=== PATIENT | male | born 1955 | race Caucasian/White ===

== ENCOUNTER 2020-09-19 09:56 | Outpatient (CLI) | payer MEDICARE, OTHER, SELFPAY ==
--- NOTE | 2020-09-19 10:14 | XRR_ITS ---
PROCEDURE INFORMATION: Exam: XR Cervical Spine, 2 or 3 Views Exam date and time: 09/19/2020 10:30 AM Age: 65 years old Clinical indication: Radicular pain (radiculopathy); Location of radicular pain not specified; Prior surgery; Surgery date: 6+ months TECHNIQUE: Imaging protocol: XR of the cervical spine, 2 or 3 views. COMPARISON: CR Cervical Spine 5 views [id number] 06/30/2018 1:13 PM FINDINGS: Bones/joints: Patient has undergone anterior discectomy at the C4-C5, C5-C6 and C6-C7 levels. An anterior metal plate with vertebral body screws fuses the C6-C7 level. There is reversal of the normal cervical lordotic curvature. There is no other malalignment. Degenerative changes are present with narrowing of the C3 2-3 and C3-C4 disc spaces. No fracture or other acute abnormalities are present. Soft tissues: Unremarkable. XR/XR cervical spine 3V* [id number] IMPRESSION: 1. Satisfactory postsurgical appearance from C4 through C7. 2. Degenerative changes at C2-C3 and C3-C4.
== END 2020-09-19 09:57 | disposition home or self-care (01) ==
PROVIDERS: PCP Family Medicine; Visit Provider Neurological Surgery
DX: M54.12 Radiculopathy, cervical region (principal)
CPT/HCPCS: 72040

== ENCOUNTER 2020-12-18 11:28 | Outpatient (CLI) | payer MEDICARE, OTHER, SELFPAY ==
--- NOTE | 2020-12-18 11:33 | XR_ITS ---
WS: [id number] CERVICAL SPINE TECHNIQUE: 3 views of the cervical spine CLINICAL INFORMATION: RADICULOPATHY, CERVICAL REGION COMPARISON: September 19, 2020 FINDINGS: Straightening of the normal cervical lordosis. Anterior cervical fusion C6-7. Pedicle screw fixation C6-7. Interbody fusion C4-C5, C5-C6 and C6-C7. Posterior element bony fusion at C2-3. Normal preverte bral soft tissues. XR/XR cervical spine 3V* [id number] IMPRESSION: 1. Straightening of the normal cervical lordosis with slight reversal. 2. Anterior plate and screw fixation C6-7. 3. Interbody fusion C4-C5 C5-C6 and C6-C7.
--- NOTE | 2020-12-18 11:39 | XR_ITS ---
WS: [id number] PROCEDURE: XR chest 2V* [id number] CLINICAL INFORMATION: ACUTE BRONCHITIS DUE TO OTHER SPECIFIED ORGANISMS COMPARISON: None. FINDINGS: Heart: Normal cardiac silhouette. Lungs: Mild chronic emphysematous changes. Calcified granulomas left lower lobe. No acute pulmonary i nfiltrates. No focal consolidation or pleural fluid. Postoperative changes anterior cervical fusion p artially visualized. Bones: Normal visualized bony structures. XR/XR chest 2V* [id number] IMPRESSION: No acute chest findings. No acute pulmonary infiltrates.
== END 2020-12-18 11:29 | disposition home or self-care (01) ==
PROVIDERS: PCP Family Medicine; Referring Provider Family Medicine; Visit Provider Physician Assistant
DX: M54.12 Radiculopathy, cervical region (principal); J20.9 Acute bronchitis, unspecified; M43.22 Fusion of spine, cervical region
CPT/HCPCS: 71046; 72040

== ENCOUNTER 2021-06-07 10:51 | Outpatient (CLI) | payer MEDICARE, OTHER, SELFPAY ==
--- NOTE | 2021-06-07 11:45 | XR_ITS ---
WS: [id number] CERVICAL SPINE TECHNIQUE: 3 views of the cervical spine CLINICAL INFORMATION: RADICULOPATHY, CERVICAL SPINE COMPARISON: None. FINDINGS: Straightening of the normal cervical lordosis with slight reversal. Prior postoperative changes anter ior plate and screw fixation C6-7. Interbody bony fusion C4-C5 C5-C6 and C6-C7. Posterior element fus ion C2-3. Normal C1-2 articulation. XR/XR cervical spine 3V* [id number] IMPRESSION: 1. Straightening of the normal cervical lordosis with slight reversal. 2. Moderate spondylitic changes. 3. Anterior plate and screw fixation C6-7. 4. Interbody fusion C4-C5, C5-C6 and C6-C7 5. No significant changes since December 18, 2020
== END 2021-06-07 10:52 | disposition home or self-care (01) ==
PROVIDERS: PCP Family Medicine; Visit Provider Neurological Surgery
DX: M54.12 Radiculopathy, cervical region (principal); M43.22 Fusion of spine, cervical region
CPT/HCPCS: 72040

== ENCOUNTER 2021-11-02 21:48 | Emergency (ER) | payer MEDICARE, OTHER, SELFPAY ==
[2021-11-02 21:50] VITALS: BP 160/75; PULSE 73; RESP 18; TEMP 37.2; O2SAT 98; BMI 25.8
--- NOTE | 2021-11-02 21:55 | ECG_ITS ---
[facility] Test Date: 2021-11-02 Pat Name: Arun Ceballos Department: Room: Gender: Male Audit Lead: : 1955 Requested By: Abbi Perla Order Number: [id number] Reading MD: DWAYNE OLIVAS Measurements Intervals [place] Rate: 64 P: 44 MI: 149 QRS: 32 QRSD: 93 T: 16 QT: 386 QTc: 400 Interpretive Statements SINUS RHYTHM No previous ECG available for comparison Electronically Signed On 11-03-2021 19:57:11 LOG LOADER HELPER by DWAYNE OLIVAS [id number]
--- NOTE | 2021-11-02 22:03 | ED_ITS ---
HPI - General Adult General: Chief complaint: Pediatric General Medical Stated complaint: HYPERTENSION Time Seen by Provider: 11/02/21 21:51 Source: patient and EMS Mode of arrival: EMS Limitations: no limitations History of Present Illness: HPI narrative: 66-year-old male states he has no history of high blood pressure is taking his blood pressure tonight and they were running in the 190s states he had a very mild headache started having concerns and Checking his blood pressure Being in the 180s and 190s. Patient brought in by EMS states that his blood pressures been running 160s 170s he has no chest pain. He denies any abdominal pain denies any vomiting or diarrhea states had a very mild headache he rates a 1-2 out of 10. Associated symptoms: Deny chest pain, dyspnea, headache(s), nausea, rash or vomiting Review of Systems Const: Denies: fever(s), chills, body aches or change in appetite Eyes: Denies: blurry vision or eye discomfort ENMT: Denies: throat pain or dental pain Card: Denies: chest pain Resp: Denies: dyspnea GI: Denies: abdominal pain, nausea, vomiting or diarrhea : Denies: dysuria Musc: Denies: neck pain or back pain Skin/Breast: Denies: rash Neuro: Denies: headache(s) Psych: Denies: depression Dwight/Lymph: Denies: easy bruising All/Imm: Denies: urticaria PFSH ED PFSH: Medical History (Updated 11/02/21 @ 23:02 by Abbi Perla MD) High cholesterol Social History Substance/Drug Use: never Physical Exam Const: COMMON NORMALS: no acute distress, patient oriented x3 and healthy appearing HENMT: COMMON NORMALS: normocephalic and atraumatic HEAD & SCALP: normocephalic and atraumatic Eye: COMMON NORMALS: Equal, round and reactive pupils present and EOMs intact bilaterally PUPIL: Yes Equal, round and reactive pupils present Neck/C-Spine: COMMON NORMALS: full ROM and supple Chest: COMMONS NORMALS: normal inspection of the chest and normal palpation of entire chest wall Resp: COMMON NORMALS: normal respiratory effort, No retractions, No use of accessory muscles and clear to auscultation bilaterally AUSCULTATION: clear to auscultation bilaterally Cardio: COMMON NORMALS: regular rate, regular rhythm and No murmurs present (Cardio) RATE: regular rate RHYTHM: regular rhythm GI: COMMON NORMALS: Normal to inspection, nondistended, normoactive bowel sounds present, Soft to palpation, non-tender and no masses PALPATION: Yes Soft to palpation Extremity: COMMON NORMALS: normal to inspection and full ROM Neuro: COMMON NORMALS: patient oriented x3, moves all extremities and no focal motor deficits Psych: COMMON NORMALS: mental status grossly normal, Normal thought process present and cooperative THOUGHT PROCESS: Normal thought process present Skin: COMMON NORMALS: no rashes or lesions noted and no wounds GENERAL SKIN EXAM: no rashes or lesions noted Course Vital Signs: Vital signs: Vital Signs Temperature 98.9 F 11/02/21 21:50 Pulse Rate 85 11/02/21 22:51 Respiratory Rate 17 11/02/21 22:51 Blood Pressure 125/82 11/02/21 22:51 Pulse Oximetry 97 11/02/21 22:51 MDM - General Adult MDM Narrative: Medical decision making narrative: Patient presents here with high blood pressure has been well-appearing here patient's lab work is normal he has no signs of a stroke or subarachnoid hemorrhage his blood pressure has improved here we will start him on Norvasc have him take a log of his pressure 3 times a day and follow-up with his PCP in 7 to 10 days. He is return if worsening he understands agrees to plan. Lab Data: Labs: Lab Results 11/02/21 11/02/21 21:57 21:57 WBC 5.6 10^3/uL 10^3/ uL (4.0-10.0) RBC 4.61 10^6/uL 10^6 /uL (4.1-5.3) Hgb 13.0 g/dL g/dL (11.7-16.6) Hct 39.8 % L % (42.0-52.0) MCV 86.3 fl fl (80-94) MCH 28.2 pg pg (28.0-34.0) MCHC 32.7 g/dL g/dL (30.0-36.0) RDW 12.6 % % (12.1-15.1) Plt Count 254 10^3/cmm 10^3 /cmm (130-400) MPV 8.4 fL fL (7.4-10.4) Neut % (Auto) 74.9 % % Lymph % (Auto) 12.5 % % [place] % (Auto) 9.6 % % Eos % (Auto) 2.1 % % Baso % (Auto) 0.9 % % Neut # (Auto) 4.19 10^3/uL 10^3 /uL (1.8-7.7) Lymph # (Auto) 0.7 10^3/uL L 10^ 3/uL (0.8-4.8) [place] # (Auto) 0.5 10^3/uL 10^3/ uL (0.2-0.9) Eos # (Auto) 0.1 10^3/uL 10^3/ uL (0.0-0.8) Baso # (Auto) 0.1 10^3/uL 10^3/ uL (0.0-0.1) Nucleated RBC % (a uto) 0 % % Nucleated RBCs # 0.0 /100WBC /100W BC Sodium 141 mmol/L mmol/L (136-145) Potassium 3.9 mmol/L mmol/L (3.5-5.1) Chloride 106 mmol/L mmol/L (98-107) Carbon Dioxide 23 mmol/L mmol/L (22-29) Anion Gap 15.9 (5-19) BUN 22 mg/dL mg/dL (8-23) Creatinine 1.0 mg/dL mg/dL (0.7-1.2) GFR Calculation 74.5 mL/min L mL/ min (90-130) Glucose 115 mg/dL mg/dL (65-115) Calculated Osmolal ity 296 mOsm/kg H mOs m/kg (285-295) Calcium 8.5 mg/dL mg/dL (8.5-10.5) Total Bilirubin 0.2 mg/dL mg/dL (0.15-1.2) AST 20 U/L U/L (0-40) ALT 14 U/L U/L (0-41) Alkaline Phosphata se 72 IU/L IU/L (40-130) Total Protein 6.3 g/dL L g/dL (6.6-8.7) Albumin 4.3 g/dL g/dL (3.5-5.2) Globulin 2.0 g/dL g/dL (1.3-4.6) EKG Data^: EKG 1: Attestation: I personally reviewed and interpreted this EKG as follows: EKG interpretation date: 11/02/21 EKG interpretation time: 22:19 Interpretation: nsr hr [address] or t wave abnormalities qrs 93 qtc 396 Discharge Plan Discharge Patient Disposition: Home Clinical Impression: Hypertension Qualifiers: Hypertension type: unspecified Qualified Code(s): I10 - Essential (primary) hypertension Condition: Stable Prescriptions: New Norvasc 5 mg tablet 5 mg PO DAILY Qty: 30 RF: 0 Discharge Orders: Discharge ED (Routine); Ordered 11/02/21 Ordered By: Abbi Perla Referrals: Donna Camara MD [Primary Care Provider] - 1-3 days Discharge Diet: Advance as tolerated Discharge Activity: Resume usual activity Patient Instructions: Hypertension (ED) Coding Level of Care Code ED Dairy Equipment Specialist for Chg Fwd Exam Comprehensive
[2021-11-02 22:07] LABS: Basophils # 0.1 10^3/uL (0.0-0.1); Basophils % 0.9 %; Eosinophils # 0.1 10^3/uL (0.0-0.8); Eosinophils % 2.1 %; Hematocrit 39.8 % (42.0-52.0); Lymphocytes # 0.7 10^3/uL (0.8-4.8); Lymphocytes % 12.5 %; Mean Corpuscular HGB Conc 32.7 g/dL (30.0-36.0); Mean Corpuscular Hemoglobin 28.2 pg (28.0-34.0); Mean Corpuscular Volume 86.3 fl (80-94); Mean Platelet Volume 8.4 fL (7.4-10.4); Monocytes # 0.5 10^3/uL (0.2-0.9); Monocytes % 9.6 %; Neutrophils # 4.19 10^3/uL (1.8-7.7); Neutrophils % 74.9 %; Nucleated Red Blood Cells % 0 %; Platelet Count 254 10^3/cmm (130-400); Red Blood Count 4.61 10^6/uL (4.1-5.3); Red Cell Distribution Width 12.6 % (12.1-15.1); White Blood Count 5.6 10^3/uL (4.0-10.0)
[2021-11-02 22:23] VITALS: BP 144/91; PULSE 89; RESP 17; O2SAT 95
[2021-11-02 22:24] LABS: Alanine Aminotransferase 14 U/L (0-41); Albumin Level 4.3 g/dL (3.5-5.2); Alkaline Phosphatase 72 IU/L (40-130); Anion Gap 15.9 (5-19); Aspartate Amino Transferase 20 U/L (0-40); Blood Urea Nitrogen 22 mg/dL (8-23); Calcium 8.5 mg/dL (8.5-10.5); Carbon Dioxide 23 mmol/L (22-29); Chloride 106 mmol/L (98-107); Glomerular Filtration Rate 74.5 mL/min (90-130); Glucose 115 mg/dL (65-115); Osmolality Calculated 296 mOsm/kg (285-295); Potassium 3.9 mmol/L (3.5-5.1); Sodium 141 mmol/L (136-145); Total Bilirubin 0.2 mg/dL (0.15-1.2); Total Protein 6.3 g/dL (6.6-8.7)
--- NOTE | 2021-11-02 22:24 | PC.NURSE ---
patient received with c/o feeling pounding in head and feeling flushed ICT SUPPORT ENGINEER. states was checking blood pressure ICT SUPPORT ENGINEER and was 190'd SBP. reports no medications prescribed for BP at this time. respirations even equal and unlabored. NAD. BP and SPO2 in place. deneis other complaints.
[2021-11-02 22:51] VITALS: BP 125/82; PULSE 85; RESP 17; O2SAT 97
[2021-11-02] MEDS: labetalol 5 mg/mL SDV 20mL 10 MG IVP (23:04)
== END 2021-11-02 23:05 | disposition home or self-care (01) ==
PROVIDERS: Emergency Provider Emergency Medicine; PCP Family Medicine
DX: I10 Essential (primary) hypertension (principal)
CPT/HCPCS: 80053; 85025; 93005; 96374; 99283; J3490

== ENCOUNTER 2022-02-21 23:59 | Emergency (ER) | payer MEDICARE, OTHER, SELFPAY ==
[2022-02-22 00:10] VITALS: BP 165/72; PULSE 75; RESP 25; TEMP 37.1; O2SAT 99; BMI 25.8
--- NOTE | 2022-02-22 00:20 | W.ED.ALLEREA ---
HPI - Allergic Reaction General: Chief complaint: Allergic Reaction Stated complaint: allergic reaction, hives Time Seen by Provider: 02/22/22 00:19 History of Present Illness: HPI narrative: 66-year-old male patient comes in today with generalized urticaria. Patient reports for the last 2 days he has had the rash. Patient was stopped on doxycycline and started on amoxicillin Friday. 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 Patient is chronically on antibiotics. Patient reports that he was seen by his primary care provider when the hives started 2 days ago and was given a dose of steroid and started on oral medications. Patient continues on the prednisone and using antihistamines with minimal relief. Patient comes in tonight due to persistent and worsening symptoms. Patient has extensive hives. Review of Systems General: Reports: 10 or more systems reviewed and unremarkable except in HPI and below Card: Denies: chest pain Resp: Denies: dyspnea Skin/Breast: Reports: rash [facility] ED PFSH: Medical History (Updated 02/22/22 @ 01:58 by KUMAR Aguayo) High cholesterol Physical Exam Const: COMMON NORMALS: alert HENMT: COMMON NORMALS: normocephalic HEAD & SCALP: normocephalic Eye: COMMON NORMALS: EOMs intact bilaterally Neck/C-Spine: COMMON NORMALS: full ROM and no meningeal signs Resp: COMMON NORMALS: normal respiratory effort and clear to auscultation bilaterally AUSCULTATION: clear to auscultation bilaterally Cardio: COMMON NORMALS: regular rate RATE: regular rate GI: COMMON NORMALS: Soft to palpation and non-tender PALPATION: Yes Soft to palpation : COMMON NORMALS: Yes no CVA tenderness BLADDER/KIDNEY EXAM: Yes no CVA tenderness Back/Pelvis: COMMON NORMALS: no CVA tenderness Extremity: COMMON NORMALS: normal to inspection Neuro: SENSORIUM/ORIENTATION: Yes alert MENINGEAL SIGNS: Yes no meningeal signs Skin: RASHES: rashes noted (Generalized urticaria) Course Vital Signs: Vital signs: Vital Signs Temperature 98.8 F 02/22/22 00:10 Pulse Rate 73 02/22/22 01:39 Respiratory Rate 18 02/22/22 01:39 Blood Pressure 127/70 02/22/22 01:39 Pulse Oximetry 100 02/22/22 01:39 MDM - Allergic Reaction Medical Decision Making Patient came in today with worsening urticaria crash. Patient also reported some itching in his throat and difficulty swallowing. On exam lungs were clear to auscultation. Posterior pharynx was pink and moist. Vital signs are normal. Patient did have an extensive urticarial rash especially to the torso. Differential diagnosis includes chronic urticaria, anaphylaxis, allergic reaction. Laboratory values were unremarkable. Patient was given 50 mg of Benadryl IV, 125 mg of Solu-Medrol, and 0.5 epinephrine IM. We did see improvement in patient's urticaria. Patient will continue with prednisone that was started by his primary care. Discussed the use of cetirizine and increasing the dose to a maximum dose of 40 mg a day as recommended in recent literature for control of urticaria. Discussed warnings regarding high-dose antihistamines causing anticholinergic effects such as decreased and inability to urinate. We will prescribe patient EpiPen in case that patient has difficulty with respirations during severe reactions. Also discussed with holding amoxicillin and other antibiotics until his body returns to a more normal status. Patient reported understanding of this care plan need for follow-up or return to the ER. Patient did have improvement after the dose of epinephrine but some of the urticaria continued to linger. Lab Data : 02/22/22 00:25 02/22/22 00:25 Laboratory Results WBC 11.2 10^3/uL (4.0-10.0) H 02/22/22 00:25 RBC 4.99 10^6/uL (4.1-5.3) 02/22/22 00:25 Hgb 14.1 g/dL (11.7-16.6) 02/22/22 00:25 Hct 43.4 % (42.0-52.0) 02/22/22 00:25 MCV 87.0 fl (80-94) 02/22/22 00:25 MCH 28.3 pg (28.0-34.0) 02/22/22 00:25 MCHC 32.5 g/dL (30.0-36.0) 02/22/22 00:25 RDW 13.0 % (12.1-15.1) 02/22/22 00:25 Plt Count 365 10^3/cmm (130-400) 02/22/22 00:25 MPV 8.5 fL (7.4-10.4) 02/22/22 00:25 Neut % (Auto) 88.8 % 02/22/22 00:25 Lymph % (Auto) 6.4 % 02/22/22 00:25 [place] % (Auto) 3.9 % 02/22/22 00:25 Eos % (Auto) 0.2 % 02/22/22 00:25 Baso % (Auto) 0.3 % 02/22/22 00:25 Neut # (Auto) 9.98 10^3/uL (1.8-7.7) H 02/22/22 00:25 Lymph # (Auto) 0.7 10^3/uL (0.8-4.8) L 02/22/22 00:25 [place] # (Auto) 0.4 10^3/uL (0.2-0.9) 02/22/22 00:25 Eos # (Auto) 0.0 10^3/uL (0.0-0.8) 02/22/22 00:25 Baso # (Auto) 0.0 10^3/uL (0.0-0.1) 02/22/22 00:25 Nucleated RBC % (auto) 0 % 02/22/22 00:25 Nucleated RBCs # 0.0 /100WBC 02/22/22 00:25 Sodium 139 mmol/L (136-145) 02/22/22 00:25 Potassium 4.4 mmol/L (3.5-5.1) 02/22/22 00:25 Chloride 103 mmol/L (98-107) 02/22/22 00:25 Carbon Dioxide 26 mmol/L (22-29) 02/22/22 00:25 Anion Gap 14.4 (5-19) 02/22/22 00:25 BUN 24 mg/dL (8-23) H 02/22/22 00:25 Creatinine 1.1 mg/dL (0.7-1.2) 02/22/22 00:25 GFR Calculation 66.8 mL/min (90-130) L 02/22/22 00:25 Glucose 99 mg/dL (65-115) 02/22/22 00:25 Calculated Osmolality 292 mOsm/kg (285-295) 02/22/22 00:25 Calcium 9.8 mg/dL (8.5-10.5) 02/22/22 00:25 Total Bilirubin 0.2 mg/dL (0.15-1.2) 02/22/22 00:25 AST 19 U/L (0-40) 02/22/22 00:25 ALT 17 U/L (0-41) 02/22/22 00:25 Alkaline Phosphatase 81 IU/L (40-130) 02/22/22 00:25 Total Protein 7.2 g/dL (6.6-8.7) 02/22/22 00:25 Albumin 4.5 g/dL (3.5-5.2) 02/22/22 00:25 Globulin 2.7 g/dL (1.3-4.6) 02/22/22 00:25 Discharge Plan Discharge Patient Disposition: Home Clinical Impression: Urticaria Condition: Stable Prescriptions: New epinephrine 0.3 mg/0.3 mL auto-injector 0.3 mg IM Q10M PRN (Reason: anaphylaxis) Qty: 2 1RF Rx Instructions: for 2 doses No Action Norvasc 5 mg tablet 5 mg PO DAILY Qty: 30 0RF Discharge Orders: Discharge ED (Routine); Ordered 02/22/22 Ordered By: Jairo Dailey Referrals: Donna Camara MD [Primary Care Provider] - Discharge Diet: Advance as tolerated Discharge Activity: Increase activity as tolerated Patient Instructions: Urticaria (ED) Activity Restrictions/Additional Instructions: Take Zyrtec 1 tablet increase it to twice a day once in the morning and then once the evening. You can take as much as 20 mg twice a day of cetirizine to help get better control of your rash. Monitor for difficulty with urination. If you are unable to void for more than 8 hours you may need to have a catheter placed. Continue with medications otherwise as directed by primary care. Hold antibiotic until the rash clears and then talk with your specialist about other antibiotics that may be possible to try. Use the epinephrine pen for severe hives along with nausea or itching or swelling of the throat. Follow-up with primary care in 3 days for recheck. Return to ER for worsening symptoms or new concerns. Coding Level of Care Code ED [employer] Supervisor for Mia Fwd Exam Comprehensive
--- NOTE | 2022-02-22 00:25 | XRR_ITS ---
PROCEDURE INFORMATION: Exam: XR Chest Exam date and time: 02/22/2022 12:42 AM Age: 66 years old Clinical indication: Cough and shortness of breath; Patient HX: Patient breaking out in hives all over chest, back, and arms. Has a cough with SOB. ; Additional info: Cough congestion TECHNIQUE: Imaging protocol: XR of the chest. Views: 1 view. COMPARISON: CR XR chest 2V* [id number] 12/18/2020 11:44 AM FINDINGS: Lungs: There are mild bibasilar atelectatic changes. There is no evidence of focal pulmonary consolidation. Pleural spaces: No pleural effusion or pneumothorax. Heart/Mediastinum: Normal in size. Bones/joints: There is an ACDF plate overlying the lower cervical spine. XR/XR chest 1V portable [id number] IMPRESSION: 1. Mild bibasilar atelectatic changes. 2. No other acute findings.
[2022-02-22 00:30] LABS: Basophils % 0.3 %; Eosinophils % 0.2 %; Hematocrit 43.4 % (42.0-52.0); Hemoglobin 14.1 g/dL (11.7-16.6); Lymphocytes # 0.7 10^3/uL (0.8-4.8); Lymphocytes % 6.4 %; Mean Corpuscular HGB Conc 32.5 g/dL (30.0-36.0); Mean Corpuscular Hemoglobin 28.3 pg (28.0-34.0); Mean Platelet Volume 8.5 fL (7.4-10.4); Monocytes # 0.4 10^3/uL (0.2-0.9); Monocytes % 3.9 %; Neutrophils # 9.98 10^3/uL (1.8-7.7); Neutrophils % 88.8 %; Nucleated Red Blood Cells % 0 %; Platelet Count 365 10^3/cmm (130-400); Red Blood Count 4.99 10^6/uL (4.1-5.3); White Blood Count 11.2 10^3/uL (4.0-10.0)
[2022-02-22] MEDS: EPINEPHrine 1 mg/mL INJ 0.5 MG IM (00:32)
[2022-02-22] MEDS: diphenhydrAMINE 50 mg/mL SDV 1mL IVP (00:33)
[2022-02-22] MEDS: sodium chloride 0.9% 500 ML 999 ML IV (00:39)
[2022-02-22 00:43] VITALS: BP 134/60; PULSE 73; RESP 18; O2SAT 99
[2022-02-22 00:45] VITALS: BP 143/75; PULSE 80; RESP 18; O2SAT 100
[2022-02-22 00:47] LABS: Alanine Aminotransferase 17 U/L (0-41); Albumin Level 4.5 g/dL (3.5-5.2); Alkaline Phosphatase 81 IU/L (40-130); Anion Gap 14.4 (5-19); Aspartate Amino Transferase 19 U/L (0-40); Blood Urea Nitrogen 24 mg/dL (8-23); Calcium 9.8 mg/dL (8.5-10.5); Carbon Dioxide 26 mmol/L (22-29); Chloride 103 mmol/L (98-107); Globulin 2.7 g/dL (1.3-4.6); Glomerular Filtration Rate 66.8 mL/min (90-130); Glucose 99 mg/dL (65-115); Osmolality Calculated 292 mOsm/kg (285-295); Potassium 4.4 mmol/L (3.5-5.1); Sodium 139 mmol/L (136-145); Total Bilirubin 0.2 mg/dL (0.15-1.2); Total Protein 7.2 g/dL (6.6-8.7)
[2022-02-22 01:39] VITALS: BP 127/70; PULSE 73; RESP 18; O2SAT 100
[2022-02-22 02:11] VITALS: BP 122/67; PULSE 87; RESP 16; O2SAT 95
== END 2022-02-22 02:14 | disposition home or self-care (01) ==
PROVIDERS: Emergency Provider Nurse Practitioner Family; PCP Family Medicine
DX: L50.9 Urticaria, unspecified (principal)
CPT/HCPCS: 71045; 80053; 85025; 96361; 96372; 96374; 96375; 99284; J0171; J1200; J2930; J7040

== ENCOUNTER 2022-02-23 09:48 | Emergency (ER) | payer MEDICARE, OTHER, SELFPAY ==
[2022-02-23 10:19] VITALS: BP 143/73; PULSE 59; RESP 19; TEMP 36.6; O2SAT 98; BMI 25.8
[2022-02-23 10:22] VITALS: BP 146/73; PULSE 54; RESP 15; TEMP 36.6; O2SAT 97
--- NOTE | 2022-02-23 10:40 | W.ED.ALLEREA ---
Documented by User: KUMAR Weir 02/23/22 11:54 HPI - Allergic Reaction General: Chief complaint: Allergic Reaction Stated complaint: Hives over face Time Seen by Provider: 02/23/22 09:52 History of Present Illness: HPI narrative: Patient has been on antibiotics for over 3 years due to hip replacement problems. Patient currently does not have a right hip joint. Patient is taking amoxicillin for 3 years for sure and had doxycycline past and had a reaction to doxycycline was taken off. Recently was restarting doxycycline then had another reaction. Patient was in the ER here and received epi and steroids and Benadryl and did much better but hives became back. Patient had urticaria is worse on his back and on his head. Patient not having breathing difficulties his has not had any rash in his mouth this time. Known history of allergy to: Doxycycline Associated symptoms: Deny abdominal pain, nausea or vomiting Review of Systems Const: Denies: fever(s), chills or body aches Eyes: Denies: eye discomfort ENMT: Denies: throat pain Card: Denies: chest pain Resp: Denies: dyspnea GI: Denies: abdominal pain, nausea or vomiting Skin/Breast: Reports: rash, pruritus and erythema Neuro: Denies: headache(s) Psych: Denies: depression or suicidal ideation [facility] ED PFSH: Medical History (Updated 02/23/22 @ 11:53 by KUMAR Weir) High cholesterol Physical Exam Const: COMMON NORMALS: no acute distress, patient oriented x3 and alert HENMT: COMMON NORMALS: normocephalic and external ears normal HEAD & SCALP: normocephalic EXTERNAL EAR: Yes external ears normal THROAT: posterior oropharynx normal Eye: COMMON NORMALS: EOMs intact bilaterally Neck/C-Spine: COMMON NORMALS: no JVD Resp: COMMON NORMALS: normal respiratory effort and No use of accessory muscles Cardio: COMMON NORMALS: no JVD GI: INSPECTION: Yes normal to inspection Extremity: COMMON NORMALS: normal to inspection and full ROM Neuro: COMMON NORMALS: patient oriented x3 SENSORIUM/ORIENTATION: Yes alert Psych: COMMON NORMALS: mental status grossly normal Skin: OTHER: Patient has scattered urticaria especially on his back. He is got some healing areas on his inner thighs. Does have a few on his scalp. Course Vital Signs: Vital signs: Vital Signs Temperature 97.9 F 02/23/22 10:22 Pulse Rate 73 02/23/22 12:22 Respiratory Rate 18 02/23/22 12:22 Blood Pressure 137/66 02/23/22 12:22 Pulse Oximetry 96 02/23/22 12:22 MDM - Allergic Reaction Medical Decision Making Patient comes in with return of urticaria. Patient recently been on doxycycline which she had had hives with before. He stopped taking it here 3 days ago. Patient's prednisone was tapered down he had a flareup today. Patient responded well to medications given the ER. Patient was encouraged follow-up with the fire protection designer [employer]. Prednisone dose was changed. Discharge Plan Discharge Patient Disposition: Home Clinical Impression: Urticaria Condition: Stable Prescriptions: New prednisone 20 mg tablet 60 mg PO DAILY 5 Days Qty: 15 0RF No Action Norvasc 5 mg tablet 5 mg PO DAILY Qty: 30 0RF epinephrine 0.3 mg/0.3 mL auto-injector 0.3 mg IM Q10M PRN (Reason: anaphylaxis) Qty: 2 1RF Rx Instructions: for 2 doses Discharge Orders: Discharge ED (Routine); Ordered 02/23/22 Ordered By: Dinesh Diallo Referrals: Donna Camara MD [Primary Care Provider] - Discharge Diet: Usual diet Discharge Activity: Resume usual activity Activity Restrictions/Additional Instructions: Contact your fire protection designer this coming week and see about getting an appointment soon as possible for allergy testing. Take prednisone as directed. Continue take Zyrtec and then start taking Pepcid also. Write down everything you eat and come in contact with and any medication you take and provide those to the fire protection designer. Coding Level of Care Code ED Criminal Justice Teacher for Chg Fwd Exam Comprehensive Documented by User: Rigoberto Yen DO 02/23/22 14:01 HPI - Allergic Reaction General: Chief complaint: Allergic Reaction Stated complaint: Hives over face Time Seen by Provider: 02/23/22 09:52 PFSH ED PFSH: Medical History (Updated 02/23/22 @ 11:53 by KUMAR Weir) High cholesterol Course Vital Signs: Vital signs: Vital Signs Temperature 97.9 F 02/23/22 10:22 Pulse Rate 73 02/23/22 12:22 Respiratory Rate 18 02/23/22 12:22 Blood Pressure 137/66 02/23/22 12:22 Pulse Oximetry 96 02/23/22 12:22 MDM - Allergic Reaction Medical Decision Making Patient comes in with return of urticaria. Patient recently been on doxycycline which she had had hives with before. He stopped taking it here 3 days ago. Patient's prednisone was tapered down he had a flareup today. Patient responded well to medications given the ER. Patient was encouraged follow-up with the fire protection designer [employer]. Prednisone dose was changed. Chart reviewed and patient discussed with midlevel. Agree with assessment and plan. Discharge Plan Discharge Patient Disposition: Home Clinical Impression: Urticaria Condition: Stable Prescriptions: New prednisone 20 mg tablet 60 mg PO DAILY 5 Days Qty: 15 0RF No Action Norvasc 5 mg tablet 5 mg PO DAILY Qty: 30 0RF epinephrine 0.3 mg/0.3 mL auto-injector 0.3 mg IM Q10M PRN (Reason: anaphylaxis) Qty: 2 1RF Rx Instructions: for 2 doses Discharge Orders: Discharge ED (Routine); Ordered 02/23/22 Ordered By: Dinesh Diallo Referrals: Donna Camara MD [Primary Care Provider] - Discharge Diet: Usual diet Discharge Activity: Resume usual activity Activity Restrictions/Additional Instructions: Contact your fire protection designer this coming week and see about getting an appointment soon as possible for allergy testing. Take prednisone as directed. Continue take Zyrtec and then start taking Pepcid also. Write down everything you eat and come in contact with and any medication you take and provide those to the fire protection designer. Coding Level of Care Code ED Criminal Justice Teacher for Mia Fwbenjamin Exam Comprehensive
[2022-02-23] MEDS: EPINEPHrine 1 mg/mL INJ 0.3 MG IM (10:49)
[2022-02-23] MEDS: famotidine 20 mg/2 mL INJ 40 MG IVP (10:58)
[2022-02-23 11:10] VITALS: BP 146/73; PULSE 58; RESP 15; O2SAT 100
[2022-02-23 11:43] VITALS: BP 122/69; PULSE 51; RESP 17; O2SAT 96
[2022-02-23 12:22] VITALS: BP 137/66; PULSE 73; RESP 18; O2SAT 96
== END 2022-02-23 12:25 | disposition home or self-care (01) ==
PROVIDERS: Emergency Provider Nurse Practitioner Family; PCP Family Medicine
DX: L50.0 Allergic urticaria (principal); T36.4X5A Adverse effect of tetracyclines, initial encounter
CPT/HCPCS: 96372; 96374; 96375; 99283; J0171; J2930; J3490

== ENCOUNTER 2022-07-06 11:52 | Emergency (ER) | payer MEDICARE, OTHER, SELFPAY ==
[2022-07-06] VITALS (9 sets, daily range): BP systolic 123–166; BP diastolic 73–89; PULSE 63–91; RESP 12–18; TEMP 36.3; O2SAT 96–100; BMI 25.8
--- NOTE | 2022-07-06 11:59 | ECG_ITS ---
[facility] Test Date: 2022-07-06 Pat Name: Arun Ceballos Department: Room: Gender: Male [employer]: : 1955 Requested By: Abbi Perla Order Number: [id number] Cristian MD: Danny Redmond M.D. Measurements Intervals [place] Rate: 78 P: 52 GA: 118 QRS: 56 QRSD: 93 T: 39 QT: 366 QTc: 419 Interpretive Statements SINUS RHYTHM WITH SHORT GA INTERVAL Compared to ECG 11/02/2021 22:19:07 Short [place] interval now present Electronically Signed On 07-07-2022 8:31:49 CDT by Danny Redmond M.D. [email or web address] [email or web address]/store/NU/[id number] f
--- NOTE | 2022-07-06 12:02 | XRR_ITS ---
PROCEDURE INFORMATION: Exam: XR Chest Exam date and time: 07/06/2022 12:22 PM Age: 67 years old Clinical indication: Pain; Chest pressure; Additional info: Cp TECHNIQUE: Imaging protocol: Radiologic exam of the chest. Views: 1 view. COMPARISON: CR XR chest 1V portable [id number] 02/22/2022 12:42 AM FINDINGS: Lungs: Unremarkable. No consolidation. Pleural spaces: Unremarkable. No pleural effusion. No pneumothorax. Heart/Mediastinum: Unremarkable. No cardiomegaly. Bones/joints: Metallic hardware is seen in the cervical spine XR/XR chest 1V portable [id number] IMPRESSION: No acute findings. Metallic hardware cervical spine
--- NOTE | 2022-07-06 12:10 | W.ED.CHESTPA ---
HPI - Chest Pain General: Chief Complaint: Chest Pain Stated Complaint: Chest discomfort, High blood pressure, SOB Time Seen by Provider: 07/06/22 12:02 Source: patient Mode of arrival: ambulatory Limitations: no limitations History of Present Illness: 67-year-old male states that yesterday throughout the night he had felt flushed he been checking his blood pressure had been running high blood pressure in the 180s he states continue to be high this morning. He states he had some slight chest pressure along with some shortness of breath. States he still feels flushed she has no pain currently his blood pressure here is 117/78 denies any cough denies any fever denies any vomiting or diarrhea. Associated symptoms: Deny abdominal pain, dyspnea, fever(s), nausea or vomiting Review of Systems Const: Denies: fever(s), chills, body aches or change in appetite Eyes: Denies: blurry vision or eye discomfort ENMT: Denies: throat pain or dental pain Card: Reports: chest pain Resp: Denies: dyspnea GI: Denies: abdominal pain, nausea, vomiting or diarrhea : Denies: dysuria Musc: Denies: neck pain or back pain Skin/Breast: Denies: rash Neuro: Denies: headache(s) Psych: Denies: depression Dwight/Lymph: Denies: easy bruising All/Imm: Denies: urticaria PFSH ED PFSH: Medical History High cholesterol Social History (Updated 07/06/22 @ 12:12 by Abbi Perla MD) Alcohol intake: never Physical Exam Const: COMMON NORMALS: no acute distress, patient oriented x3 and healthy appearing HENMT: COMMON NORMALS: normocephalic and atraumatic HEAD & SCALP: normocephalic and atraumatic Eye: COMMON NORMALS: Equal, round and reactive pupils present and EOMs intact bilaterally PUPIL: Yes Equal, round and reactive pupils present Neck/C-Spine: COMMON NORMALS: full ROM and supple Chest: COMMONS NORMALS: normal inspection of the chest and normal palpation of entire chest wall Resp: COMMON NORMALS: normal respiratory effort, No retractions, No use of accessory muscles and clear to auscultation bilaterally AUSCULTATION: clear to auscultation bilaterally Cardio: COMMON NORMALS: regular rate, regular rhythm and No murmurs present (Cardio) RATE: regular rate RHYTHM: regular rhythm GI: COMMON NORMALS: Normal to inspection, nondistended, normoactive bowel sounds present, Soft to palpation, non-tender and no masses PALPATION: Yes Soft to palpation Extremity: COMMON NORMALS: normal to inspection and full ROM Neuro: COMMON NORMALS: patient oriented x3, moves all extremities and no focal motor deficits Psych: COMMON NORMALS: mental status grossly normal, Normal thought process present and cooperative THOUGHT PROCESS: Normal thought process present Skin: COMMON NORMALS: no rashes or lesions noted and no wounds GENERAL SKIN EXAM: no rashes or lesions noted Course Vital Signs: Vital signs: Vital Signs Temperature 97.4 F L 07/06/22 11:56 Pulse Rate 66 07/06/22 15:30 Respiratory Rate 14 07/06/22 15:30 Blood Pressure 146/82 07/06/22 15:30 Pulse Oximetry 99 07/06/22 15:30 Oxygen Delivery Me thod 07/06/22 11:56 MDM - Chest Pain Medical Decision Making Patient presents here with hypertension along with some chest pain patient's been pain-free here his blood pressure here has been normal his initial repeat troponins are negative patient is stable for discharge at this time he has no signs of dissection or pulm embolism he is to trend his blood pressures follow-up with his PCP and return if he has any worsening symptoms he understands agrees to plan. Lab Data : 07/06/22 13:12 07/06/22 13:12 Radiology Impressions Chest X-Ray 07/06/22 12:02 IMPRESSION: No acute findings. Metallic hardware cervical spine Laboratory Results WBC 6.7 10^3/uL (4.0-10.0) 07/06/22 13:12 Corrected WBC Cancelled 07/06/22 12:15 RBC 5.27 10^6/uL (4.1-5.3) 07/06/22 13:12 Hgb 14.5 g/dL (11.7-16.6) 07/06/22 13:12 Hct 44.1 % (42.0-52.0) 07/06/22 13:12 MCV 83.7 fl (80-94) 07/06/22 13:12 MCH 27.5 pg (28.0-34.0) L 07/06/22 13:12 MCHC 32.9 g/dL (30.0-36.0) 07/06/22 13:12 RDW 13.0 % (12.1-15.1) 07/06/22 13:12 Plt Count 279 10^3/cmm (130-400) 07/06/22 13:12 MPV 8.4 fL (7.4-10.4) 07/06/22 13:12 Gran % Cancelled 07/06/22 12:15 Neut % (Auto) 85.9 % 07/06/22 13:12 Lymph % (Auto) 7.3 % 07/06/22 13:12 Stephens % (Auto) 5.5 % 07/06/22 13:12 Eos % (Auto) 0.3 % 07/06/22 13:12 Baso % (Auto) 0.7 % 07/06/22 13:12 Neut # (Auto) 5.78 10^3/uL (1.8-7.7) 07/06/22 13:12 Lymph # (Auto) 0.5 10^3/uL (0.8-4.8) L 07/06/22 13:12 Stephens # (Auto) 0.4 10^3/uL (0.2-0.9) 07/06/22 13:12 Eos # (Auto) 0.0 10^3/uL (0.0-0.8) 07/06/22 13:12 Baso # (Auto) 0.1 10^3/uL (0.0-0.1) 07/06/22 13:12 Absolute Gran (auto) Cancelled 07/06/22 12:15 Nucleated RBC % (auto) 0 % 07/06/22 13:12 Nucleated RBCs # 0.0 /100WBC 07/06/22 13:12 Sodium 135 mmol/L (136-145) L 07/06/22 13:12 Potassium 4.0 mmol/L (3.5-5.1) 07/06/22 13:12 Chloride 101 mmol/L (98-107) 07/06/22 13:12 Carbon Dioxide 24 mmol/L (22-29) 07/06/22 13:12 Anion Gap 14.0 (5-19) 07/06/22 13:12 BUN 11 mg/dL (8-23) 07/06/22 13:12 Creatinine 0.9 mg/dL (0.7-1.2) 07/06/22 13:12 GFR Calculation 83.9 mL/min (90-130) L 07/06/22 13:12 Glucose 108 mg/dL (65-115) 07/06/22 13:12 Calculated Osmolality 280 mOsm/kg (285-295) L 07/06/22 13:12 Calcium 9.2 mg/dL (8.5-10.5) 07/06/22 13:12 Total Bilirubin 0.3 mg/dL (0.15-1.2) 07/06/22 13:12 AST 13 U/L (0-40) 07/06/22 13:12 ALT 10 U/L (0-41) 07/06/22 13:12 Alkaline Phosphatase 88 U/L (40-130) 07/06/22 13:12 Troponin T Baseline 8 ng/L (0-15) 07/06/22 13:12 Troponin T 120 Minute 9.39 ng/L (0-15) 07/06/22 15:21 Total Protein 7.0 g/dL (6.6-8.7) 07/06/22 13:12 Albumin 4.1 g/dL (3.5-5.2) 07/06/22 13:12 Globulin 2.9 g/dL (1.3-4.6) 07/06/22 13:12 EKG Data EKG 1: I personally reviewed and interpreted this EKG as follows: EKG interpretation date: 07/06/22 EKG interpretation time: 11:59 Interpretation: nsr hr [address] or t wave abnormalities qrs 93 qtc 399 EKG 2: I personally reviewed and interpreted this EKG as follows: EKG interpretation date: 07/06/22 EKG interpretation time: 14:05 Interpretation: nsr hr [address] or t wave abnormalities qrs 100 qtc 401 Discharge Plan Discharge Patient Disposition: Home Clinical Impression: Chest pain Qualifiers: Chest pain type: unspecified Qualified Code(s): R07.9 - Chest pain, unspecified Prescriptions: No Action epinephrine 0.3 mg/0.3 mL auto-injector 0.3 mg IM Q10M PRN (Reason: anaphylaxis) Qty: 2 1RF Rx Instructions: for 2 doses gabapentin 600 mg tablet 600 mg PO TID PRN (Reason: neuropathy) trazodone 50 mg tablet 50 mg PO BEDTIME hydrocodone-acetaminophen 5-325 mg tablet 1 tab PO QID PRN (Reason: Pain) lovastatin 10 mg tablet 10 mg PO DAILY tamsulosin 0.4 mg capsule 0.8 mg PO BEDTIME baclofen 10 mg tablet 10 mg PO TID PRN (Reason: Pain) pantoprazole 40 mg tablet,delayed release (DR/EC) 40 mg PO BID aspirin 81 mg Tablet,Chewable 81 mg PO DAILY Norvasc 5 mg tablet 5 mg PO BID Discharge Orders: Discharge ED (Routine); Ordered 07/06/22 Ordered By: Abbi Perla Referrals: Donna Camara MD [Primary Care Provider] - 1-3 days Discharge Diet: Advance as tolerated Discharge Activity: Resume usual activity Patient Instructions: Chest Pain (ED) Coding Level of Care Code ED M48/M60 Tank Driver for Chg Fwd Exam Comprehensive
[2022-07-06 13:18] LABS: Basophils # 0.1 10^3/uL (0.0-0.1); Basophils % 0.7 %; Eosinophils % 0.3 %; Hematocrit 44.1 % (42.0-52.0); Hemoglobin 14.5 g/dL (11.7-16.6); Lymphocytes # 0.5 10^3/uL (0.8-4.8); Lymphocytes % 7.3 %; Mean Corpuscular HGB Conc 32.9 g/dL (30.0-36.0); Mean Corpuscular Hemoglobin 27.5 pg (28.0-34.0); Mean Corpuscular Volume 83.7 fl (80-94); Mean Platelet Volume 8.4 fL (7.4-10.4); Monocytes # 0.4 10^3/uL (0.2-0.9); Monocytes % 5.5 %; Neutrophils # 5.78 10^3/uL (1.8-7.7); Neutrophils % 85.9 %; Nucleated Red Blood Cells % 0 %; Platelet Count 279 10^3/cmm (130-400); Red Blood Count 5.27 10^6/uL (4.1-5.3); White Blood Count 6.7 10^3/uL (4.0-10.0)
[2022-07-06 13:48] LABS: Alanine Aminotransferase 10 U/L (0-41); Albumin Level 4.1 g/dL (3.5-5.2); Alkaline Phosphatase 88 U/L (40-130); Aspartate Amino Transferase 13 U/L (0-40); Blood Urea Nitrogen 11 mg/dL (8-23); Calcium 9.2 mg/dL (8.5-10.5); Carbon Dioxide 24 mmol/L (22-29); Chloride 101 mmol/L (98-107); Creatinine Clr Calc Pharmacy 82.4129; Globulin 2.9 g/dL (1.3-4.6); Glomerular Filtration Rate 83.9 mL/min (90-130); Glucose 108 mg/dL (65-115); Osmolality Calculated 280 mOsm/kg (285-295); Sodium 135 mmol/L (136-145); Total Bilirubin 0.3 mg/dL (0.15-1.2)
[2022-07-06 13:49] LABS: Troponin(5th) Baseline 8 ng/L (0-15)
--- NOTE | 2022-07-06 14:05 | ECG_ITS ---
[facility] Test Date: 2022-07-06 Pat Name: Arun Ceballos Department: Room: Gender: Male [employer]: : 1955 Requested By: Abbi Perla Order Number: [id number] Cristian MD: Danny Redmond M.D. Measurements Intervals [place] Rate: 65 P: 50 [place]: 144 QRS: 44 QRSD: 100 T: 35 QT: 390 QTc: 407 Interpretive Statements SINUS RHYTHM Compared to ECG 07/06/2022 11:59:05 Short [place] interval no longer present Electronically Signed On 07-07-2022 8:37:42 CDT by Danny Redmond M.D. [email or web address] community hospitalKannactohiohealth doctors hospital.[employer]/store/OM/[id number]
[2022-07-06 16:10] LABS: Troponin 5 2HR 9.39 ng/L (0-15)
[2022-07-06 16:18] LABS: Troponin 5 2HR Delta 1.39 ABS# (0-10)
== END 2022-07-06 16:25 | disposition home or self-care (01) ==
PROVIDERS: Emergency Provider Emergency Medicine; PCP Family Medicine
DX: R07.9 Chest pain, unspecified (principal); Z79.82 Long term (current) use of aspirin; E78.00 Pure hypercholesterolemia, unspecified
CPT/HCPCS: 36415; 71045; 80053; 84484; 85025; 93005; 99285

== ENCOUNTER 2023-12-19 12:12 | Outpatient (CLI) | payer MEDICARE, OTHER, SELFPAY ==
--- NOTE | 2023-12-19 12:21 | XR_ITS ---
WS: [id number] Exam: XR chest 2V* [id number] Date/Time of Exam: 12/19/2023 12:21 PM Reason For Exam: ACUTE BRONCHITIS DUE TO OTHER SPECIFIED ORGANISMS Comparison 07/06/2022. Lungs are clear and fully expanded. Heart size is normal. Prominent bilateral main pulmonary arteries . The mediastinum is normal in contour. Bony structures are unremarkable. Extensive extensive fusion hardware in the visualized lower cervical spine. IMPRESSION: 1. No acute cardiopulmonary finding. 2. Prominent main pulmonary arteries that might be seen with pulmonary hypertension.
== END 2023-12-19 12:13 | disposition home or self-care (01) ==
LOC: RAD 12:15
PROVIDERS: PCP Family Medicine; Visit Provider Family Medicine
DX: J20.8 Acute bronchitis due to other specified organisms (principal)
CPT/HCPCS: 71046

== ENCOUNTER 2024-01-06 08:08 | Outpatient (CLI) | payer MEDICARE, OTHER, SELFPAY ==
--- NOTE | 2024-01-06 08:17 | USCV_ITS ---
Arun Ceballos Age: 68 Gender: M : 1955 Exam Date: 01/06/2024 08:33 Ordering Phys: Donna Camara MD Technologist: HAYDER Exam Location: [facility] Indication: CHEST PAIN/ DILATED PULM VESSELS BP: 136 / 75 HR: 55 Rhythm: Sinus Technical Quality: Adequate MEASUREMENTS (Male / Female) Normal Values 2D ECHO LV Diastolic Diameter PLAX 4.6 cm 4.2 - 5.9 / 3.9 - 5.3 cm IVS Diastolic Thickness 1.3 cm 0.6 - 1.0 / 0.6 - 0.9 cm IVS Systolic Thickness 1.8 cm LVPW Diastolic Thickness 1.5 cm 0.6 - 1.0 / 0.6 - 0.9 cm LVPW Systolic Thickness 2.6 cm LVOT Diameter 2.0 cm LV Ejection Fraction 2D Teich 62.5 % LV Ejection Fraction MOD 2C 53.5 % LV Ejection Fraction 2C AL 57.2 % LA Diameter 3.0 cm RA Systolic Volume 4C AL 39.7 ml RA Systolic Volume 4C MOD 39.7 ml Aorta at Sinotubular Diameter 2.6 cm M-MODE LA Ao Ratio MM 1.1 AV Cusp Separation MM 1.7 cm DOPPLER AV Peak Velocity 144.0 cm/s LVOT Peak Velocity 111.0 cm/s AV Area Cont Eq vti 2.6 cm squared AV Area Cont Eq pk 2.4 cm squared MV Peak Velocity 71.0 cm/s MV Area PHT 3.0 cm squared Mitral E to A Ratio 1.1 TR Peak Velocity 246.0 cm/s TR Peak Gradient 24.2 mmHg TR Mean Velocity 213.0 cm/s TR Mean Gradient 18.8 mmHg TR Velocity Time Integral 73.2 cm TV Peak E Velocity 36.0 cm/s Right Atrial Pressure 3.0 mmHg Pulmonary Artery Systolic Pressu 27.2 mmHg PV Peak Velocity 124.0 cm/s RV Ejection Time 0.3 s FINDINGS Left Ventricle Left ventricle is normal in size. LV systolic function is normal with EF of 55 to 60%. No regional wall motion abnormalities are seen. Right Ventricle Normal in size and function Right Atrium Normal in size Left Atrium Normal in size Mitral Valve Structurally normal mitral valve. Mild mitral regurgitation. Aortic Valve Structurally normal aortic valve. No significant stenosis or regurgitation. Tricuspid Valve Mild tricuspid regurgitation. Insufficient TR jet to evaluate RVSP. Pulmonic Valve Mild pulmonic regurgitation. Pericardium Normal Aorta Normal in size IVC Not well visualized CONCLUSIONS LV systolic function is normal with EF of 55 to 60%. Mild mitral regurgitation Mild tricuspid regurgitation Mild pulmonic regurgitation No comparison studies are available Priyank Shook MD (Electronically Signed) Final Date: 18 January 2024 11:51 S
== END 2024-01-06 08:09 | disposition home or self-care (01) ==
LOC: RAD 08:09
PROVIDERS: PCP Family Medicine; Visit Provider Family Medicine
DX: R93.89 Abnormal findings on diagnostic imaging of other specified body structures (principal); I08.8 Other rheumatic multiple valve diseases; I28.8 Other diseases of pulmonary vessels; R07.9 Chest pain, unspecified
CPT/HCPCS: 93306

== ENCOUNTER 2024-01-17 14:36 | Emergency (ER) | payer MEDICARE, OTHER, SELFPAY ==
[2024-01-17 14:40] VITALS: BP 140/66; PULSE 70; RESP 17; TEMP 36.6; O2SAT 98; BMI 25.8
[2024-01-17 14:55] VITALS: BP 158/85; PULSE 81; RESP 18; TEMP 36.6; O2SAT 100
--- NOTE | 2024-01-17 15:00 | XRR_ITS ---
PROCEDURE INFORMATION: Exam: XR Right Shoulder Exam date and time: 01/17/2024 3:06 PM Age: 68 years old Clinical indication: Right; Patient HX: RT shoulder/neck pain post fall; HX neck surg x 3 TECHNIQUE: Imaging protocol: Radiologic exam of the right shoulder. Views: 2 or more views. COMPARISON: CR (NECK, ) 01/17/2024 3:06 PM FINDINGS: Bones/joints: Normal. Soft tissues: Normal. XR/XR shoulder RT min 2V* [id number] IMPRESSION: No acute findings.
--- NOTE | 2024-01-17 15:00 | XRR_ITS ---
PROCEDURE INFORMATION: Exam: XR Cervical Spine Exam date and time: 01/17/2024 3:06 PM Age: 68 years old Clinical indication: Injury or trauma; Prior surgery; Surgery date: 6+ months; Surgery type: Cspine fusion; Patient HX: RT shoulder/neck pain post fall; HX neck surg x 3 TECHNIQUE: Imaging protocol: Radiologic exam of the cervical spine. Views: 2 or 3 views. COMPARISON: CR XR cervical spine 3V* [id number] 12/18/2020 11:44 AM FINDINGS: Bones/joints: Posterior spinal fusion hardware noted at the C3-T1 segment which appears intact. ACDF hardware noted at the C6-C7 segment. Intervertebral disc spacers noted at C4-C5, C5-C6, and C6-C7. No acute fracture. No traumatic spinal malalignment. Soft tissues: Unremarkable. XR/XR cervical spine 3V* [id number] IMPRESSION: No acute findings.
--- NOTE | 2024-01-17 15:09 | ED_ITS ---
Documented by User: JOSE ALFREDO Hastings 01/17/24 16:07 HPI - Extremity Problem General: Chief complaint: Extremity Injury, Upper Stated complaint: fall, right shoulder/neck pain Time Seen by Provider: 01/17/24 14:38 Source: patient Mode of arrival: ambulatory Limitations: no limitations History of Present Illness: Patient is a 68-year-old male presents to the emergency department complaining of right shoulder and neck pain status post fall 1 week ago. Patient notes he tripped over himself and caught himself with an outstretched right arm 1 week ago, and has had worsening right shoulder, clavicle, and lateral neck pain since. He reports history of multiple cervical spine surgeries, and notes that he is due for an MRI on Friday, however wanted his injuries checked out today prior to normal follow-up. He states he took a hydrocodone that he takes as needed for pain prior to arrival, and this did little for his pain. He denies any new numbness, weakness, or tingling down his arms. No chest pain or breathing difficulties. No headaches or visual changes. He notes being on gabapentin chronically for neuropathic pain. MD Complaint: joint pain (Right shoulder) Onset (ago): week(s) (1) Pain Consistency: constant Location: right Relieving factors: nothing Exacerbating factors: range of motion Associated symptoms: Deny chest pain, fever(s) or rash Context: other (History of cervical spine surgeries, history of fall 1 week ago) Review of Systems General: Reports: 10 or more systems reviewed and unremarkable except in HPI and below Const: Denies: fever(s), chills or fatigue Eyes: Denies: change in vision ENMT: Denies: throat pain, ear or mastoid pain or nasal discharge Card: Denies: chest pain, palpitations, swelling of feet/ankles or lightheadedness Resp: Denies: dyspnea, productive cough or wheezing GI: Denies: abdominal pain, nausea, vomiting, diarrhea or constipation : Denies: flank pain, difficulty urinating, dysuria or urinary frequency Musc: Reports: neck pain and joint pain (Right shoulder); Denies: back pain Skin/Breast: Denies: rash Neuro: Denies: headache(s), numbness in extremities or weakness in extremities PFS ED PFSH: Medical History High cholesterol Social History (Updated 07/06/22 @ 12:12 by Abbi Perla MD) Alcohol intake: never Substance/Drug Use: never Physical Exam Const: COMMON NORMALS: no acute distress, patient oriented x3 and no limit ations GENERAL APPEARANCE: cooperative, comfortable and well developed ORIENTATION/CONSCIOUSNESS: Yes awake, Yes oriented to person, Yes oriented to place and Yes oriented to time HENMT: COMMON NORMALS: normocephalic, atraumatic and hearing grossly normal bilaterally HEAD & SCALP: normocephalic and atraumatic FACE & SINUS: normal facial exam Eye: COMMON NORMALS: Equal, round and reactive pupils present, EOMs intact bilaterally and conjunctivae normal CONJUNCTIVA: Yes conjunctivae normal PUPIL: Yes Equal, round and reactive pupils present Neck/C-Spine: COMMON NORMALS: full ROM (Minimal pain reported with rotation), supple and no JVD GENERAL: Yes normal visual inspection CERVICAL SPINE: Yes cervical ROM normal, No Cervical spine tenderness, No step off deformity, Yes Paracervical muscle tenderness right, Yes Paracervical spasm right, Yes Trapezius muscle tenderness right and Yes Cervical spine scars present (From past cervical surgeries) Chest: COMMONS NORMALS: normal inspection of the chest Resp: COMMON NORMALS: normal respiratory effort, No retractions, No use of accessory muscles and clear to auscultation bilaterally AUSCULTATION: clear to auscultation bilaterally Cardio: COMMON NORMALS: no JVD, regular rate, regular rhythm, No clicks present (Cardio), No murmurs present (Cardio) and No rub (Cardio) RATE: regular rate RHYTHM: regular rhythm Back/Pelvis: COMMON NORMALS: thoracic and lumbar spine normal to inspection, no thoracic nor lumbar tenderness and thoraco-lumbar ROM normal Extremity: COMMON NORMALS: normal to inspection, full ROM and capillary refill normal RIGHT UPPER EXTREMITY: Yes shoulder joint Right shoulder: Yes Right shoulder joint inspection exam (Normal to inspection, no bruising or deformities), Yes Right shoulder joint ROM exam (Normal with mild pain noted) and Yes Right shoulder joint neurovascular exam (Intact) and Yes clavicle Right clavicle: Yes inspection (Normal) and Yes palpation (Reproducible tenderness to palpation about the lateral AC) Neuro: COMMON NORMALS: patient oriented x3, moves all extremities, no focal motor deficits and no sensory deficits noted SENSORIUM/ORIENTATION: Yes oriented to person, Yes oriented to place and Yes oriented to time Psych: COMMON NORMALS: mental status grossly normal and Normal thought process present THOUGHT PROCESS: Normal thought process present Skin: COMMON NORMALS: no rashes or lesions noted GENERAL SKIN EXAM: no rashes or lesions noted Course Vital Signs: Vital signs: Vital Signs Temperature 97.9 F 01/17/24 16:18 Pulse Rate 78 01/17/24 16:18 Respiratory Rate 16 01/17/24 16:18 Blood Pressure 145/82 01/17/24 16:18 Pulse Oximetry 100 01/17/24 16:18 Oxygen Delivery Me thod Room Air 01/17/24 14:55 MDM - Extremity (Nontraumatic) Medical Decision Making This patient seen and evaluated due to right shoulder and lateral neck pain. The shoulder pain started after a fall 1 week ago, and he notes that his chronic lateral neck pain worsen as well. He has history of multiple cervical surgeries. He states he has a routine MRI scheduled on Friday, and once fractures or other injuries ruled out. Patient's vitals normal on arrival. Exam ultimately unremarkable for any deformities or bruising noted to the reported injuries, with only some mild pain with rotation at the neck. He is minimally tender over the anterior right shoulder and lateral navicular region as well. X-rays of the cervical spine and shoulder demonstrate no acute findings of dislocations or fractures. I had given the patient shots of Decadron, Norflex, and Toradol. Upon recheck he states that his pain is much better. He has hydrocodone to take at home for pain as needed, but I will send in prescriptions for muscle relaxer as well as a short course of steroids to hopefully improve his pain. Encouraged him to continue gentle range of motion exercises and that if he continues to have shoulder pain he can follow-up with his primary care to obtain an MRI. Otherwise he can keep his scheduled appointment on Friday as normal. Patient diagnosed with strains of both the right shoulder and lateral neck region due to negative imaging findings. Return precautions are given and patient agrees with discharge home. Lab Data Radiology Impressions Cervical Spine X-Ray 01/17/24 15:00 IMPRESSION: No acute findings. Shoulder X-Ray 01/17/24 15:00 IMPRESSION: No acute findings. All radiology interpretation(s) finalized by discharge Discharge Plan Discharge Patient Disposition: Home Clinical Impression: Acute strain of neck muscle Qualifiers: Encounter type: initial encounter Qualified Code(s): S16.1XXA - Strain of muscle, fascia and tendon at neck level, initial encounter Muscle strain of right shoulder Qualifiers: Encounter type: initial encounter Qualified Code(s): S46.911A - Strain of unspecified muscle, fascia and tendon at shoulder and upper arm level, right arm, initial encounter Fall Qualifiers: Encounter type: initial encounter Qualified Code(s): W19.XXXA - Unspecified fall, initial encounter Condition: Stable Prescriptions: New cyclobenzaprine 10 mg tablet 10 mg PO TID Qty: 60 0RF No Action epinephrine 0.3 mg/0.3 mL auto-injector 0.3 mg IM Q10M PRN (Reason: anaphylaxis) Qty: 2 1RF Rx Instructions: for 2 doses gabapentin 600 mg tablet 600 mg PO TID PRN (Reason: neuropathy) trazodone 50 mg tablet 50 mg PO BEDTIME hydrocodone-acetaminophen 5-325 mg tablet 1 tab PO QID PRN (Reason: Pain) lovastatin 10 mg tablet 10 mg PO DAILY tamsulosin 0.4 mg capsule 0.8 mg PO BEDTIME baclofen 10 mg tablet 10 mg PO TID PRN (Reason: Pain) pantoprazole 40 mg tablet,delayed release (DR/EC) 40 mg PO BID aspirin 81 mg Tablet,Chewable 81 mg PO DAILY PRN (Reason: Pain) amlodipine [Norvasc] 5 mg tablet 5 mg PO BID sildenafil 25 mg tablet See Rx Instructions .ROUTE .COMPLEX Rx Instructions: TAKE 2 TABLETS BY MOUTH DAILY 1 HOUR BEFORE SEXUAL ACTIVITY albuterol sulfate 90 mcg/actuation HFA aerosol inhaler 2 puff INHALATION Q4H PRN (Reason: Shortness Of Breath) Discharge Orders: Discharge ED (Routine); Ordered 01/17/24 Ordered By: Nadeem Bear Referrals: Donna Camara MD [Primary Care Provider] - Discharge Diet: Usual diet Discharge Activity: Increase activity as tolerated Patient Instructions: Muscle Strain (ED), Neck Pain (ED) Activity Restrictions/Additional Instructions: Muscle relaxer as prescribed. Prednisone as prescribed. Continue taking hydrocodone at home for pain. Follow-up on Friday as planned. If you continue to have right shoulder pain, follow-up with primary care to obtain MRI. Otherwise, return with any new or concerning symptoms. 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 [employer] Documented by User: Rigoberto Yen DO 01/23/24 12:08 HPI - Extremity Problem General: Chief complaint: Extremity Injury, Upper Stated complaint: fall, right shoulder/neck pain Time Seen by Provider: 01/17/24 14:38 [facility] ED PFSH: Medical History High cholesterol Social History (Updated 07/06/22 @ 12:12 by Abbi Perla MD) Alcohol intake: never Substance/Drug Use: never Course Vital Signs: Vital signs: Vital Signs Temperature 97.9 F 01/17/24 16:18 Pulse Rate 78 01/17/24 16:18 Respiratory Rate 16 01/17/24 16:18 Blood Pressure 145/82 01/17/24 16:18 Pulse Oximetry 100 01/17/24 16:18 Oxygen Delivery Me thod Room Air 01/17/24 14:55 MDM - Extremity (Nontraumatic) Medical Decision Making This patient seen and evaluated due to right shoulder and lateral neck pain. The shoulder pain started after a fall 1 week ago, and he notes that his chronic lateral neck pain worsen as well. He has history of multiple cervical surgeries. He states he has a routine MRI scheduled on Friday, and once fractures or other injuries ruled out. Patient's vitals normal on arrival. Exam ultimately unremarkable for any deformities or bruising noted to the reported injuries, with only some mild pain with rotation at the neck. He is minimally tender over the anterior right shoulder and lateral navicular region as well. X-rays of the cervical spine and shoulder demonstrate no acute findings of dislocations or fractures. I had given the patient shots of Decadron, Norflex, and Toradol. Upon recheck he states that his pain is much better. He has hydrocodone to take at home for pain as needed, but I will send in prescriptions for muscle relaxer as well as a short course of steroids to hopefully improve his pain. Encouraged him to continue gentle range of motion exercises and that if he continues to have shoulder pain he can follow-up with his primary care to obtain an MRI. Otherwise he can keep his scheduled appointment on Friday as normal. Patient diagnosed with strains of both the right shoulder and lateral neck region due to negative imaging findings. Return precautions are given and patient agrees with discharge home. Chart reviewed Lab Data Radiology Impressions Cervical Spine X-Ray 01/17/24 15:00 IMPRESSION: No acute findings. Shoulder X-Ray 01/17/24 15:00 IMPRESSION: No acute findings. Discharge Plan Discharge Patient Disposition: Home Clinical Impression: Acute strain of neck muscle Qualifiers: Encounter type: initial encounter Qualified Code(s): S16.1XXA - Strain of muscle, fascia and tendon at neck level, initial encounter Muscle strain of right shoulder Qualifiers: Encounter type: initial encounter Qualified Code(s): S46.911A - Strain of unspecified muscle, fascia and tendon at shoulder and upper arm level, right arm, initial encounter Fall Qualifiers: Encounter type: initial encounter Qualified Code(s): W19.XXXA - Unspecified fall, initial encounter Condition: Stable Prescriptions: New cyclobenzaprine 10 mg tablet 10 mg PO TID Qty: 60 0RF No Action epinephrine 0.3 mg/0.3 mL auto-injector 0.3 mg IM Q10M PRN (Reason: anaphylaxis) Qty: 2 1RF Rx Instructions: for 2 doses gabapentin 600 mg tablet 600 mg PO TID PRN (Reason: neuropathy) trazodone 50 mg tablet 50 mg PO BEDTIME hydrocodone-acetaminophen 5-325 mg tablet 1 tab PO QID PRN (Reason: Pain) lovastatin 10 mg tablet 10 mg PO DAILY tamsulosin 0.4 mg capsule 0.8 mg PO BEDTIME baclofen 10 mg tablet 10 mg PO TID PRN (Reason: Pain) pantoprazole 40 mg tablet,delayed release (DR/EC) 40 mg PO BID aspirin 81 mg Tablet,Chewable 81 mg PO DAILY PRN (Reason: Pain) amlodipine [Norvasc] 5 mg tablet 5 mg PO BID sildenafil 25 mg tablet See Rx Instructions .ROUTE .COMPLEX Rx Instructions: TAKE 2 TABLETS BY MOUTH DAILY 1 HOUR BEFORE SEXUAL ACTIVITY albuterol sulfate 90 mcg/actuation HFA aerosol inhaler 2 puff INHALATION Q4H PRN (Reason: Shortness Of Breath) Discharge Orders: Discharge ED (Routine); Ordered 01/17/24 Ordered By: Nadeem Bear Referrals: Donna Camara MD [Primary Care Provider] - Discharge Diet: Usual diet Discharge Activity: Increase activity as tolerated Patient Instructions: Muscle Strain (ED), Neck Pain (ED) Activity Restrictions/Additional Instructions: Muscle relaxer as prescribed. Prednisone as prescribed. Continue taking hydrocodone at home for pain. Follow-up on Friday as planned. If you continue to have right shoulder pain, follow-up with primary care to obtain MRI. Otherwise, return with any new or concerning symptoms. Coding Level of Care Code ED Assistant Production Editor for Mia Tenorio
--- NOTE | 2024-01-17 15:32 | PC.PHAR ---
PT PREFERS [facility] BUT WOULD NEED MEDICATION SENT TO [facility] TODAY. 01/17/24
[2024-01-17] MEDS: orphenadrine 30 mg/mL Inj 2 mL 60 MG IM (15:35)
[2024-01-17] MEDS: dexamethasone 10 mg/mL INJ 8 MG IM (15:35)
[2024-01-17] MEDS: ketorolac 60 mg/2 mL INJ IM (15:35)
[2024-01-17 16:18] VITALS: BP 145/82; PULSE 78; RESP 16; TEMP 36.6; O2SAT 100
== END 2024-01-17 16:17 | disposition home or self-care (01) ==
PROVIDERS: Emergency Provider Physician Assistant; PCP Family Medicine
DX: S16.1XXA Strain of muscle, fascia and tendon at neck level, initial encounter (principal); S46.911A Strain of unspecified muscle, fascia and tendon at shoulder and upper arm level, right arm, initial encounter; Z79.82 Long term (current) use of aspirin; W01.0XXA Fall on same level from slipping, tripping and stumbling without subsequent striking against object, initial encounter
CPT/HCPCS: 72040; 73030; 96372; 99284; J1100; J1885; J2360

== ENCOUNTER 2025-02-26 10:43 | Emergency (ER) | payer MEDICARE, OTHER, SELFPAY ==
[2025-02-26] VITALS (14 sets, daily range): BP systolic 126–158; BP diastolic 47–71; PULSE 82–97; RESP 16–18; TEMP 37.3–37.4; O2SAT 91–97; BMI 26.9
--- NOTE | 2025-02-26 10:46 | XRR_ITS ---
PROCEDURE INFORMATION: Exam: XR Chest Exam date and time: 02/26/2025 11:33 AM Age: 69 years old Clinical indication: Fever and nausea; Prior surgery; Surgery date: 6+ months; Surgery type: HX of appy, cholecystectomy, cervical fusion, lumbar fusion, chest lipoma/tumor resection, naomi fundoplication; Additional info: Fever, nausea TECHNIQUE: Imaging protocol: Radiologic exam of the chest. Views: 1 view. COMPARISON: CR XR chest 2V* [id number] 12/19/2023 12:38 PM FINDINGS: Tubes, catheters and devices: Partially included ACDF of the lower cervical spine and posterior instrumentation hardware. Lungs: Unremarkable. No consolidation. Pleural spaces: Unremarkable. No pleural effusion. No pneumothorax. Heart/Mediastinum: Unremarkable. No cardiomegaly. 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 PROCEDURE INFORMATION: Exam: XR Abdomen Exam date and time: 02/26/2025 11:33 AM Age: 69 years old Clinical indication: Fever and nausea; Prior surgery; Surgery date: 6+ months; Surgery type: HX of appy, cholecystectomy, cervical fusion, lumbar fusion, chest lipoma/tumor resection, naomi fundoplication; Additional info: Fever, nausea TECHNIQUE: Imaging protocol: Radiologic exam of the abdomen. Views: 2 Views. Upright and supine views. COMPARISON: CR XR chest 2V* [id number] 12/19/2023 12:38 PM FINDINGS: Tubes, catheters and devices: Instrumentation hardware at L5-S1. Gastrointestinal tract: Normal. No bowel dilation. Intraperitoneal space: Normal. No free air. Organs: There has been a cholecystectomy. Bones/joints: Post removal of right hip arthroplasty components with antibiotic cement seen. Heterotopic ossifications around the right hip. The lumbar spine demonstrates moderate degenerative changes at multiple levels. XR/XR acute abdomen series [id number] IMPRESSION: No acute cardiopulmonary process. IMPRESSION: No acute intra-abdominal process.
--- NOTE | 2025-02-26 11:00 | W.ED.GENADLT ---
HPI - General Adult General: Chief complaint: General Medical Stated complaint: left leg infection Time Seen by Provider: 02/26/25 10:44 History of Present Illness: 69-year-old man with history of hypertension, hyperlipidemia and chronic pain syndrome with recent shoulder surgery who presents emergency room by ambulance with multiple complaints today. He is having pain in the left side of his neck from shoulder immobilizer after the shoulder surgery. He is having nausea. EMS reports a fever. He has a temp of 99.2 on presentation here. Also he has a lesion on his left torrez that appears to be a scab that had gotten infected and he was started on Bactrim by his PCP for this yesterday. He is complaining of constipation. He takes pain medications at home and says he has been taking constipation medications as well. No altered mental status. No focal motor deficits. Generalized weakness. No chest pain. No shortness of breath. Related Data Home Medications ?Medication ?Instructions ?Recorded ?Confirmed amlodipine 5 mg tablet (Norvasc) 5 mg PO BID 07/06/22 02/26/25 aspirin 81 mg chewable tablet 81 mg PO DAILY PRN Pain 07/06/22 02/26/25 gabapentin 600 mg tablet 600 mg PO TID PRN neuropathy 07/06/22 02/26/25 hydrocodone 5 mg-acetaminophen 325 1 tab PO QID PRN Pain 07/06/22 02/26/25 mg tablet lovastatin 10 mg tablet 10 mg PO DAILY 07/06/22 02/26/25 tamsulosin 0.4 mg capsule 0.8 mg PO BEDTIME 07/06/22 02/26/25 trazodone 50 mg tablet 50 mg PO BEDTIME 07/06/22 02/26/25 albuterol sulfate 90 mcg/actuation 2 puff inhalation Q4H PRN 01/17/24 02/26/25 aerosol inhaler Shortness Of Breath cetirizine 10 mg tablet 10 mg PO DAILY PRN allergies 02/26/25 02/26/25 docusate sodium 100 mg capsule 100 mg PO BID PRN Constipation 02/26/25 02/26/25 (Colace) fluticasone propionate 50 1 spray intranasal BID PRN 02/26/25 02/26/25 mcg/actuation nasal allergies spray,suspension loratadine 10 mg tablet 10 mg PO BID PRN allergies 02/26/25 02/26/25 mupirocin 2 % topical ointment See Rx Instructions .Route .COMPLEX 02/26/25 02/26/25 ondansetron HCl 4 mg tablet 4 mg PO Q6H PRN nausea/emesis 02/26/25 02/26/25 pantoprazole 20 mg tablet,delayed 20 mg PO DAILY 02/26/25 02/26/25 release (Protonix) sennosides 8.6 mg-docusate sodium 1 tab-cap PO DAILY 02/26/25 02/26/25 50 mg tablet (Senokot-S) sulfamethoxazole 800 1 tab PO BID 7d 02/26/25 02/26/25 mg-trimethoprim 160 mg tablet Previous Rx's ?Medication ?Instructions ?Recorded epinephrine 0.3 mg/0.3 mL 0.3 mg (0.3 mL) IM Q10M PRN 02/22/22 injection, auto-injector anaphylaxis #2 ea Allergies Allergy/AdvReac Type Severity Reaction Status Date / Time meperidine (From Demerol) Allergy ADR-Nausea Verified 01/17/24 14:44 Review of Systems Narrative: Constitutional symptoms: Negative except as documented in HPI. Skin symptoms: Negative except as documented in HPI. Eye symptoms: Negative except as documented in HPI. ENMT symptoms: Negative except as documented in HPI. Respiratory symptoms: Negative except as documented in HPI. Cardiovascular symptoms: Negative except as documented in HPI. Gastrointestinal symptoms: Negative except as documented in HPI. Genitourinary symptoms: Negative except as documented in HPI. Musculoskeletal symptoms: Negative except as documented in HPI. Neurologic symptoms: Negative except as documented in HPI. Psychiatric symptoms: Negative except as documented in HPI. Endocrine symptoms: Negative except as documented in HPI. PFSH ED PFSH: Medical History High cholesterol Social History (Updated 07/06/22 @ 12:12 by bAbi Perla MD) Alcohol intake: never Substance/Drug Use: never Physical Exam Narrative: EXAM NARRATIVE: General: Alert, no acute distress. Skin: Warm, dry. Small scabbed over lesion on the left torrez with some mild surrounding erythema. Head: Normocephalic, atraumatic. Neck: Supple, trachea midline. Eye: Extraocular movements are intact. Ears, nose, mouth and throat: mucosa moist. Cardiovascular: Regular, Normal peripheral perfusion. Respiratory: Lungs are clear to auscultation, respirations are non-labored, breath sounds are equal, Symmetrical chest wall expansion. Gastrointestinal: Soft, Nontender, Non distended Musculoskeletal: Right arm is in a shoulder immobilizer. Neurological: Alert and oriented, No focal neurological deficit observed. Family says he is a bit more confused than usual. Psychiatric: Cooperative, appropriate mood & affect. Course Vital Signs: Vital signs: Vital Signs Temperature 99.2 F 02/26/25 10:43 Pulse Rate 85 02/26/25 11:29 Respiratory Rate 17 02/26/25 13:32 Blood Pressure 144/70 02/26/25 10:43 Pulse Oximetry 97 02/26/25 13:32 Oxygen Delivery Me thod Room Air 02/26/25 11:29 MDM - General Adult Medical Decision Making Medical decision making: Differential diagnosis for patient presenting with generalized weakness including but not limited to and based on the above HPI, review of systems and physical exam: Sepsis. Dehydration. Renal failure. Electrolyte abnormalities. Anemia. Congestive heart failure. Hypotension. Coronary syndrome. Hepatitis. Cirrhosis. Infections such as pneumonia, urinary tract infection, [place] illness, Cellulitis, Viral infections including influenza and Covid-19. Workup: labwork and lab/exam driven imaging ordered to evaluate, rule in and rule out above pathologies. Lab Review: Laboratory results were reviewed and interpreted by myself the emergency room physician. White count is only 8.7 but he is 95% neutrophils/left shifted. CRP is elevated at 56. says they monitor that and it is normally around 5. He is ESR is minimally elevated at 10. No renal failure. No anemia. Urine has some mild hematuria but says that has been known. Flu COVID and RSV are negative. Acute abdominal series: chest x-ray: No acute process. No obvious infiltrates. No pneumothorax. No cardiomegaly. This was reviewed and interpreted by myself the emergency room physician Abdomen x-ray: Nonspecific bowel gas pattern. No evidence of free air or obstruction. This was reviewed and interpreted by myself the emergency room physician. I also reviewed the radiology report. CT of the chest abdomen pelvis with contrast: No acute cardiopulmonary process. Nothing acute in the abdomen. However there is a fluid collection in the right joint space measuring up to 8 cm. Liquefying hematoma versus abscess. Also hypodense enlargement of the right iliopsoas muscle at the level of the acetabulum suggestive of pyomyositis versus liquefying hematoma. This was reviewed and interpreted by myself the emergency room physician. I also reviewed the radiology report. I reviewed the patient's medical record. Reexamination: Patient has remained fairly stable here. Vitals have been good. Initially had a temp of 99 2. Family says he is a bit confused over his baseline. He has been fairly fatigued. Patient family requesting transfer to [facility] in [place]. Patient normally requires care there. They had actually requested to be taken there initially by EMS but were declined. He has his Ortho doctors and infectious disease doctors there. They state that normally his CRP is much lower and is elevated today and they feel given his history of chronic bone infections that he needs to be evaluated by the ID doctor and admitted there. I do not disagree. He has had hip hardware removed in multiple other infections. Assessment and plan: Lower extremity cellulitis Fever Encephalopathy Dehydration Generalized weakness History of complicated blood and joint infections ?IV meropenem and Zyvox in the emergency room. Normal saline bolus. -I discussed the patient with the accepting [employer] on-call. She is excepting for Dr. Curry - Discussed findings and plan with patient. Answered any questions. - All laboratory values were reviewed and interpreted personally by myself, the ER physician - All imaging was reviewed and interpreted personally by myself, the ER physician. - Evaluation and treatment of this problem were appropriate in the emergency setting Lab Data 02/26/25 11:05 02/26/25 11:05 Radiology Impressions Chest/Abdomen X-ray 02/26/25 10:46 IMPRESSION: No acute cardiopulmonary process. IMPRESSION: No acute intra-abdominal process. Chest/Abdomen/Pelvis CT 02/26/25 12:12 IMPRESSION: No acute cardiopulmonary process. IMPRESSION: 1. Post resection of right hip arthroplasty with fluid in the right hip joint space measuring up to 8 cm. This can be postoperative liquefying hematoma versus abscess. 2. Hypodense enlargement of the right iliopsoas muscle at the level of the acetabulum, suggestive of pyomyositis versus liquefying hematoma. 3. No intra-abdominal collections. COMMENTS: Consistent with the [employer]'s Incidental Findings Committee white paper (J Am Abhilash Radiol 2018): Any incidental renal lesion less than 1 cm or classified as too small to characterize, or any incidental cystic renal lesion characterized as simple-appearing, is likely benign. No follow-up imaging is recommended for these lesions per consensus recommendations based on imaging criteria. Laboratory Results WBC 8.70 10^3/uL (3.29-11.43) 02/26/25 11:05 RBC 5.28 10^6/uL (3.85-5.65) 02/26/25 11:05 Hgb 15.30 g/dL (11.27-16.99) 02/26/25 11:05 Hct 47.4 % (37-53) 02/26/25 11:05 MCV 89.8 fl (82-101) 02/26/25 11:05 MCH 29.0 pg (27-33) 02/26/25 11:05 MCHC 32.3 g/dL (30-55) 02/26/25 11:05 RDW 12.8 % (12.1-15.1) 02/26/25 11:05 Plt Count 230 10^3/cmm (157-399) 02/26/25 11:05 MPV 8.3 fL (7.4-10.4) 02/26/25 11:05 Neut % (Auto) 94.2 % 02/26/25 11:05 Lymph % (Auto) 1.1 % 02/26/25 11:05 [place] % (Auto) 2.1 % 02/26/25 11:05 Eos % (Auto) 2.0 % 02/26/25 11:05 Baso % (Auto) 0.3 % 02/26/25 11:05 Neut # (Auto) 8.19 10^3/uL (1.8-7.7) H 02/26/25 11:05 Lymph # (Auto) 0.1 10^3/uL (0.8-4.8) L 02/26/25 11:05 [place] # (Auto) 0.2 10^3/uL (0.2-0.9) 02/26/25 11:05 Eos # (Auto) 0.2 10^3/uL (0.0-0.8) 02/26/25 11:05 Baso # (Auto) 0.0 10^3/uL (0.0-0.1) 02/26/25 11:05 Nucleated RBC % (auto) 0 % 02/26/25 11:05 Nucleated RBCs # 0.0 /100WBC 02/26/25 11:05 ESR 10 mm/hr (0-10) 02/26/25 11:05 Sodium 137 mmol/L (136-145) 02/26/25 11:05 Potassium 4.2 mmol/L (3.5-5.1) 02/26/25 11:05 Chloride 101 mmol/L (98-107) 02/26/25 11:05 Carbon Dioxide 25 mmol/L (22-29) 02/26/25 11:05 Anion Gap 15.2 (5-19) 02/26/25 11:05 BUN 19 mg/dL (8-23) 02/26/25 11:05 Creatinine 1.0 mg/dL (0.7-1.2) 02/26/25 11:05 GFR Calculation 73.9 mL/min (90-130) L 02/26/25 11:05 Glucose 102 mg/dL (65-115) 02/26/25 11:05 Calculated Osmolality 286 mOsm/kg (285-295) 02/26/25 11:05 Lactic Acid 1.4 mmol/L (0.5-2.2) 02/26/25 11:05 Calcium 9.2 mg/dL (8.5-10.5) 02/26/25 11:05 Total Bilirubin 0.4 mg/dL (0.15-1.2) 02/26/25 11:05 AST 15 U/L (0-40) 02/26/25 11:05 ALT 13 U/L (0-41) 02/26/25 11:05 Alkaline Phosphatase 72 U/L (40-130) 02/26/25 11:05 C-Reactive Protein 53.9 mg/L (0.0-4.9) H 02/26/25 11:05 Total Protein 7.0 g/dL (6.6-8.7) 02/26/25 11:05 Albumin 4.0 g/dL (3.5-5.2) 02/26/25 11:05 Globulin 3.0 g/dL (1.3-4.6) 02/26/25 11:05 Lipase 39 U/L (13-60) 02/26/25 11:05 Urine Color Yellow (Yellow) 02/26/25 11:38 Urine Appearance Clear (CLEAR) 02/26/25 11:38 Urine pH 5.5 (5-7) 02/26/25 11:38 Ur Specific [place] 1.021 (1.005-1.030) 02/26/25 11:38 Urine Protein Negative (Negative) 02/26/25 11:38 Urine Glucose (UA) Negative (Normal) 02/26/25 11:38 Urine Ketones Negative (Negative) 02/26/25 11:38 Urine Blood 2+ (Negative) A 02/26/25 11:38 Urine Nitrate Negative (Negative) 02/26/25 11:38 Urine Bilirubin Negative (Negative) 02/26/25 11:38 Urine Urobilinogen 0.2 mg/dL (Negative) 02/26/25 11:38 Ur Leukocyte Esterase Negative (Negative) 02/26/25 11:38 Urine RBC 11-20 /hpf (0-2) H 02/26/25 11:38 Urine WBC 0-5 /hpf (0-5) 02/26/25 11:38 Ur Squamous Epith Cells 0-5 /hpf (0-5) 02/26/25 11:38 Amorphous Sediment Not Reportable 02/26/25 11:38 Urine Bacteria None seen /hpf (NONE) 02/26/25 11:38 Hyaline Casts 0.40 /lpf 02/26/25 11:38 Influenza A (PCR) Negative (Negative) 02/26/25 11:30 Influenza Type B (PCR) Negative (Negative) 02/26/25 11:30 RSV (PCR) Negative (Negative) 02/26/25 11:30 SARS-CoV-2 (PCR) Negative (Negative) 02/26/25 11:30 All radiology interpretation(s) finalized by discharge Discharge Plan Discharge Patient Disposition: Xfer Short-Term Hosp Clinical Impression: Cellulitis of left lower leg, Fever, Acute metabolic encephalopathy, Generalized weakness Condition: Stable Referrals: Donna Camara MD [Primary Care Provider, [facility]] Print Language: Nicaraguan Coding Level of Care Code ED [facility] for Mia Tenorio
[2025-02-26] MEDS: sodium chloride 0.9% 1,000 ML 999 ML IV (11:05)
[2025-02-26] MEDS: ondansetron 2 mg/ML SDV 2 mL 4 MG IVP (11:07)
[2025-02-26 11:22] LABS: Basophils % 0.3 %; Eosinophils # 0.2 10^3/uL (0.0-0.8); Hematocrit 47.4 % (37-53); Lymphocytes # 0.1 10^3/uL (0.8-4.8); Lymphocytes % 1.1 %; Mean Corpuscular HGB Conc 32.3 g/dL (30-55); Mean Corpuscular Volume 89.8 fl (82-101); Mean Platelet Volume 8.3 fL (7.4-10.4); Monocytes # 0.2 10^3/uL (0.2-0.9); Monocytes % 2.1 %; Neutrophils # 8.19 10^3/uL (1.8-7.7); Neutrophils % 94.2 %; Nucleated Red Blood Cells % 0 %; Platelet Count 230 10^3/cmm (157-399); Red Blood Count 5.28 10^6/uL (3.85-5.65); Red Cell Distribution Width 12.8 % (12.1-15.1)
[2025-02-26 11:31] LABS: Erythrocyte Sedimentation Rate 10 mm/hr (0-10)
--- NOTE | 2025-02-26 11:34 | PC.PHAR ---
Pt had current med list from [employer]. List has 2 antihistamines listedm Zyrtec and Claritin. Pts' spouse states he takes prn. Pt took Zofran this morning, [place] at midnignt, and gabapentin at 3am.
[2025-02-26 11:39] LABS: Alanine Aminotransferase 13 U/L (0-41); Alkaline Phosphatase 72 U/L (40-130); Anion Gap 15.2 (5-19); Aspartate Amino Transferase 15 U/L (0-40); Blood Urea Nitrogen 19 mg/dL (8-23); C Reactive Protein 53.9 mg/L (0.0-4.9); Calcium 9.2 mg/dL (8.5-10.5); Carbon Dioxide 25 mmol/L (22-29); Chloride 101 mmol/L (98-107); Glomerular Filtration Rate 73.9 mL/min (90-130); Glucose 102 mg/dL (65-115); Lipase 39 U/L (13-60); Osmolality Calculated 286 mOsm/kg (285-295); Potassium 4.2 mmol/L (3.5-5.1); Sodium 137 mmol/L (136-145); Total Bilirubin 0.4 mg/dL (0.15-1.2)
[2025-02-26 11:40] LABS: Lactic Sepsis W/Reflex 1.4 mmol/L (0.5-2.2)
[2025-02-26 11:52] LABS: Bilirubin Urine Negative (Negative); Blood Urine 2+ (Negative); Glucose Urine UA Negative (Normal); Ketones Urine Negative (Negative); Leukocyte Esterase Urine Negative (Negative); Nitrate Urine Negative (Negative); Protein Urine Negative (Negative); Specific Gravity, Urine 1.021 (1.005-1.030); Urine Appearance Clear (CLEAR); Urine Color Yellow (Yellow); Urobilinogen Urine 0.2 mg/dL (Negative); pH Urine 5.5 (5-7)
[2025-02-26 11:54] LABS: Bacteria Urine None Seen /hpf; Squamous Epithelial Cell Urine 0-5 /hpf (0-5); WBC Urine 0-5 /hpf (0-5)
[2025-02-26 11:56] LABS: Add Urine Culture? Yes
[2025-02-26 12:11] LABS: Influenza A NEGATIVE (Negative); Influenza B NEGATIVE (Negative); Respiratory Syncytial Virus Ce NEGATIVE (Negative); SARS-CoV-2 PCR NEGATIVE (Negative)
--- NOTE | 2025-02-26 12:12 | CTR_ITS ---
PROCEDURE INFORMATION: Exam: CT Chest With Contrast; Diagnostic Exam date and time: 02/26/2025 12:39 PM Age: 69 years old Clinical indication: Fever and nausea; Additional info: Fever, cough, nausea, hematuria TECHNIQUE: Imaging protocol: Diagnostic computed tomography of the chest with contrast. Radiation optimization: All CT scans at this facility use at least one of these dose optimization techniques: automated exposure control; mA and/or kV adjustment per patient size (includes targeted exams where dose is matched to clinical indication); or iterative reconstruction. Contrast material: OMNI 350; Contrast volume: 100 ml; Contrast route: INTRAVENOUS (IV); COMPARISON: CR XR acute abdomen series [id number] 02/26/2025 11:33 AM RADIATION DOSE METRICS: Total DLP (mGy-cm): 1332.75 FINDINGS: Lungs: Calcified pulmonary granulomas. Bilateral apical fibrotic changes. Bilateral lower lobe dependent atelectasis. There is no evidence of focal pulmonary consolidation. Pleural spaces: Unremarkable. No pneumothorax. No pleural effusion. Heart: Unremarkable. No cardiomegaly. No pericardial effusion. Coronary arteries: There is moderate atherosclerotic calcification of the coronary arteries. Lymph nodes: Calcified left hilar lymph nodes. Vasculature: Unremarkable. No aortic aneurysm. Bones/joints: Lucencies in the right humeral head, likely post rotator cuff repair. Post posterior instrumentation of the cervical spine and lower cervical spine ACDF.The thoracic spine demonstrates mild degenerative changes at multiple levels. Soft tissues: Unremarkable. PROCEDURE INFORMATION: Exam: CT Abdomen And Pelvis With Contrast Exam date and time: 02/26/2025 12:39 PM Age: 69 years old Clinical indication: Fever and nausea; Additional info: Fever, cough, nausea, hematuria TECHNIQUE: Imaging protocol: Computed tomography of the abdomen and pelvis with contrast. Radiation optimization: All CT scans at this facility use at least one of these dose optimization techniques: automated exposure control; mA and/or kV adjustment per patient size (includes targeted exams where dose is matched to clinical indication); or iterative reconstruction. Contrast material: OMNI 350; Contrast volume: 100 ml; Contrast route: INTRAVENOUS (IV); COMPARISON: CR XR acute abdomen series [id number] 02/26/2025 11:33 AM RADIATION DOSE METRICS: Total DLP (mGy-cm): 1332.75 FINDINGS: Liver: There are calcified granulomas in the liver. Gallbladder and biliary ducts: There has been a cholecystectomy. Pancreas: Normal. No ductal dilation. Spleen: There are multiple calcified granulomas of the spleen. Adrenal glands: Normal. No mass. Kidneys and ureters: Atrophy of the right kidney, from prior insult. Tiny hypodensities in the lower pole of the left kidney measuring up to 5 mm, likely representing renal cysts. Stomach and bowel: Unremarkable. No obstruction. No mucosal thickening. Appendix: No evidence of appendicitis. Intraperitoneal space: Unremarkable. No free air. No significant fluid collection. Vasculature: The vasculature demonstrates diffuse mild atherosclerotic calcification. There are numerous benign phleboliths in the pelvis. Lymph nodes: Unremarkable. No enlarged lymph nodes. Urinary bladder: Unremarkable as visualized. Reproductive: Unremarkable as visualized. Bones/joints: Post resection of right hip arthroplasty with moderate amount fluid measuring 7.8 x 4.6 cm in the right hip joint space. There is enlargement of the right iliopsoas muscle at the level of the right acetabulum measuring 4.9 x 3.4 x 8 cm. The pubic symphysis demonstrates mild degenerative changes. There are mild degenerative changes in the left hip joint. Cement is seen in the right proximal femur and right acetabular space, at the area of prior arthroplasty. The lumbar spine demonstrates mild degenerative changes at multiple levels. Post anterior and posterior instrumentation at L5-S1 with mild anterolisthesis of L5 over S1. Soft tissues: Mild atrophy of the right psoas muscle. CT/CT chest abdpel w/*[id number] IMPRESSION: No acute cardiopulmonary process. IMPRESSION: 1. Post resection of right hip arthroplasty with fluid in the right hip joint space measuring up to 8 cm. This can be postoperative liquefying hematoma versus abscess. 2. Hypodense enlargement of the right iliopsoas muscle at the level of the acetabulum, suggestive of pyomyositis versus liquefying hematoma. 3. No intra-abdominal collections. COMMENTS: Consistent with the [employer]'s Incidental Findings Committee white paper (J Am Abhilash Radiol 2018): Any incidental renal lesion less than 1 cm or classified as too small to characterize, or any incidental cystic renal lesion characterized as simple-appearing, is likely benign. No follow-up imaging is recommended for these lesions per consensus recommendations based on imaging criteria.
[2025-02-26] MEDS: iohexol 350 mg/mL 500 mL Btl (per mL) IV (12:43)
[2025-02-26] MEDS: meropenem 500 mg SDV IVP (12:53)
[2025-02-26] MEDS: linezolid premix 600 MG/300 ML PREMIX 300 MG IV (12:53)
[2025-02-26] MEDS: morphine 4 mg/mL SDV 1 mL IVP (13:32)
[2025-02-26] MEDS: diphenhydrAMINE 50 mg/mL SDV 1mL 25 MG IVP (14:02)
[2025-02-26] MEDS: prochlorperazine 10 mg/2 mL Inj IVP (14:02)
--- NOTE | 2025-02-26 18:10 | PC.NURSE ---
Attempted to call report to [facility] and was asked when they were leaving. I was told that since the patient would not be there before 7pm they wanted us to call report after 7pm to accommodate shift change.
== END 2025-02-26 21:51 | disposition short-term general hospital (02) ==
PROVIDERS: Emergency Provider Emergency Medicine; PCP Family Medicine
DX: L03.116 Cellulitis of left lower limb (principal); R50.9 Fever, unspecified; G93.41 Metabolic encephalopathy; R53.1 Weakness; Z11.52 Encounter for screening for COVID-19
CPT/HCPCS: 36415; 71260; 74022; 74177; 80053; 81001; 83605; 83690; 85025; 85651; 86140; 87040; 87086; 87637; 96365; 96375; 99285; J0780; J1200; J2020; J2185; J2270; J2405; J7030

== ENCOUNTER 2025-06-02 15:48 | Outpatient (CLI) | payer MEDICARE, OTHER, SELFPAY ==
--- NOTE | 2025-06-02 16:07 | XR_ITS ---
WS: [id number] Chest 2 views, 06/02/2025 Clinical Data: SHORTNESS OF BREATH Comparison: Two-view chest, 12/19/2023 Findings: No nodules, masses or effusions are seen. The heart is normal. The pulmonary vascularity is not increased. No pneumonia or pneumothorax is seen. The pulmonary arteries are prominent. The aortic arch shows calcification. The diaphragms are flattened. The patient has had anterior and posterior cervical fusions. XR/XR chest 2V* [id number] Impression: 1. Atherosclerosis and hyperinflation. 2. Prominent pulmonary arteries.
== END 2025-06-02 15:49 | disposition home or self-care (01) ==
LOC: RAD 15:53
PROVIDERS: PCP Family Medicine; Visit Provider Nurse Practitioner Family
DX: R06.02 Shortness of breath (principal); I70.0 Atherosclerosis of aorta
CPT/HCPCS: 71046

== ENCOUNTER 2025-08-25 07:56 | Outpatient (CLI) | payer MEDICARE, OTHER, SELFPAY | END 2025-08-25 07:57 | disposition home or self-care (01) | LOC: RT 07:59 | PROVIDERS: PCP Nurse Practitioner Family; Visit Provider Nurse Practitioner Family | DX: R06.02 Shortness of breath (principal); R68.89 Other general symptoms and signs | CPT/HCPCS: J7613 ==